=== PATIENT | male | born 1985 | race Caucasian/White ===

== ENCOUNTER 2017-11-01 03:32 | Emergency (ER) | payer OTHER ==
[2017-11-01 04:01] LABS: #Basophils 0.1 thou/uL (0.0-0.2); #Eosinphils 0.2 thou/uL (0.0-0.7); #Lymphocytes 3.3 thou/uL (1.20-3.40); #Monocytes 1.1 thou/uL (0.11-0.59); %Basophils 0.8 % (0.0-1.0); %Eosinophils 1.6 % (0.0-10.0); %Lymphocytes 25.9 % (21.0-51.0); %Monocytes 8.9 % (0.0-10.0); %Neutrophils 62.9 % (42.0-75.0); Hemoglobin 15.9 g/dL (14.0-18.0); Mean Corpuscular HGB CONC 34.5 g/dL (32.0-36.0); Mean Corpuscular Hemoglobin 28.2 pg (27.0-31.0); Mean Corpuscular Volume 81.8 fl (80.0-94.0); Mean Platelet Volume 7.2 fL (7.4-10.4); Platelet Count 252 thou/uL (130-400); RBC Distribution Width 12.5 % (11.5-14.5); Red Blood Cell (RBC) Count 5.63 mill/uL (4.70-6.10); White Blood Cell (WBC) Count 12.7 thou/uL (4.8-10.8)
[2017-11-01 04:24] LABS: ALT (SGPT) 47 U/L (8-55); AST (SGOT) 19 U/L (5-34); Alkaline Phosphatase 85 U/L (40-150); Anion Gap 12 mmol/L (10-20); BUN (Urea Nitrogen) 10 mg/dL (8.9-20.6); Bilirubin, Total 0.5 mg/dL (0.2-1.2); CK (CPK) 77 U/L (30-200); Calc. Creatinine Clearance 0 mL/min (70-130); Calcium 9.3 mg/dL (7.8-10.44); Carbon Dioxide 25 mmol/L (22-29); Chloride 105 mmol/L (98-107); Estimated GFR-MDRD Greater than 90; Globulin 3.1 g/dL (2.4-3.5); Glucose 120 mg/dL (70-105); Potassium 3.4 mmol/L (3.5-5.1); Protein, Total 7.1 g/dL (6.0-8.3); Sodium 139 mmol/L (136-145)
[2017-11-01 04:27] LABS: CKMB 1.1 ng/mL (0-6.6); Troponin I Less than 0.010 ng/mL (< 0.028)
--- NOTE | 2017-11-01 09:53 | RAD ---
2 VIEWS CHEST: Date: 11/01/17 COMPARISON: None. HISTORY: Chest pain. FINDINGS: No pneumothorax or pleural fluid. No focal consolidation or alveolar edema. Heart and mediastinal con tours unremarkable. IMPRESSION: No acute findings. POS: [facility]
--- NOTE | 2017-11-01 11:23 | CT ---
PRELIMINARY REPORT/[facility]/EMERGENTY AFTER-HOURS PROCEDURE EXAM: CT Angiography Chest With Intravenous Contrast CLINICAL HISTORY: 32 years old, male; Pain; Chest pain; Patient HX: Er 8; M 32 presents to ed with 2 weeks of cp nausea and SOB. Was seen at pcp 2 weeks ago and placed on an inhaler for possible asthma. Pt reports pain b etween shoulder blades. Reports palpitations when laying flat. Pmh includes hypothyroidism, ibs asthm a and seasonal allergies TECHNIQUE: Axial computed tomographic angiography images of the chest with intravenous contrast using pulmonary embolism protocol. MIP reconstructed images were created and reviewed. Oblique reformatted images wer e created and reviewed. COMPARISON: No relevant prior studies available. FINDINGS: Pulmonary arteries: No pulmonary embolism. Aorta: Unremarkable. Lungs: No consolidation. Pleural space: No significant effusion. No pneumothorax. Heart: Unremarkable. Bones/joints: No acute fracture. No dislocation. Soft tissues: Unremarkable. Lymph nodes: No enlarged lymph nodes. IMPRESSION: No pulmonary embolism. Thank you for allowing us to participate in the care of your patient. Dictated and Authenticated by: Alvin Lackey MD 11/01/2017 5:50 AM Central Time ([place] & [place]) FINAL REPORT CT ANGIOGRAM CHEST: Date: 11/01/17 COMPARISON: None. HISTORY: Chest pain, nausea, and shortness of breath. FINDINGS: Provided imaging includes 3D reformatted imaging using a CT angiogram protocol. Imaged upper abdomen unremarkable. No lymphadenopathy. No pleural, pericardial, or mediastinal fluid. No evidence for pulm onary embolism. Lung parenchyma and osseous structures demonstrate no acute findings. IMPRESSION: Unremarkable CT angiogram of the chest. POS: [facility]
[2017-11-01] MEDS ORDERED: ISOVUE-370 76%-LOCM 1 ML ONE (14:21)
== END 2017-11-01 06:17 | disposition home or self-care (01) ==
LOC: ERS 03:32
DX: J40 Bronchitis, not specified as acute or chronic (principal); E03.9 Hypothyroidism, unspecified; Z79.899 Other long term (current) drug therapy
CPT/HCPCS: 36415; 71046; 71275; 80053; 82550; 82553; 83880; 84484; 85025; 93005; 94640; J7620

== ENCOUNTER 2017-11-19 15:18 | Observation (INO) | payer OTHER, SELFPAY ==
--- NOTE | 2017-11-19 16:30 | RAD ---
SINGLE VIEW OF THE CHEST: 11/19/17 COMPARISON: None. HISTORY: Mid sternal chest pain that radiates to the mid back. FINDINGS: Single view of the chest shows a normal sized cardiomediastinal silhouette. There is no evidence of c onsolidation, mass, or pleural effusion. The bones are unremarkable. IMPRESSION: No evidence of acute cardiopulmonary disease. POS: [facility]
[2017-11-19 16:42] LABS: #Basophils 0.1 thou/uL (0.0-0.2); #Eosinphils 0.1 thou/uL (0.0-0.7); #Lymphocytes 2.2 thou/uL (1.20-3.40); #Monocytes 1.1 thou/uL (0.11-0.59); #Neutrophils 9.7 thou/uL (1.40-6.50); %Basophils 0.5 % (0.0-1.0); %Eosinophils 1.1 % (0.0-10.0); %Lymphocytes 16.5 % (21.0-51.0); %Monocytes 8.6 % (0.0-10.0); %Neutrophils 73.3 % (42.0-75.0); Hemoglobin 16.2 g/dL (14.0-18.0); Mean Corpuscular HGB CONC 33.9 g/dL (32.0-36.0); Mean Corpuscular Hemoglobin 27.4 pg (27.0-31.0); Mean Platelet Volume 7.1 fL (7.4-10.4); Platelet Count 291 thou/uL (130-400); RBC Distribution Width 12.7 % (11.5-14.5); Red Blood Cell (RBC) Count 5.89 mill/uL (4.70-6.10); White Blood Cell (WBC) Count 13.3 thou/uL (4.8-10.8)
[2017-11-19 17:05] LABS: CKMB 1.1 ng/mL (0-6.6); Troponin I Less than 0.010 ng/mL (< 0.028)
[2017-11-19 17:07] LABS: ALT (SGPT) 53 U/L (8-55); AST (SGOT) 21 U/L (5-34); Albumin 4.2 g/dL (3.5-5.0); Alkaline Phosphatase 86 U/L (40-150); Anion Gap 9 mmol/L (10-20); BUN (Urea Nitrogen) 11 mg/dL (8.9-20.6); Bilirubin, Total 0.4 mg/dL (0.2-1.2); Calc. Creatinine Clearance 0 mL/min (70-130); Calcium 9.2 mg/dL (7.8-10.44); Carbon Dioxide 25 mmol/L (22-29); Chloride 106 mmol/L (98-107); Estimated GFR-MDRD Greater than 90; Globulin 3.2 g/dL (2.4-3.5); Glucose 111 mg/dL (70-105); Potassium 3.5 mmol/L (3.5-5.1); Protein, Total 7.4 g/dL (6.0-8.3); Sodium 136 mmol/L (136-145)
--- NOTE | 2017-11-19 19:01 | PDOC.FPRHP ---
- History of Present Illness Chief Complaint: chest pain, nausea, cough History of Present Illness: 32 yo M w/ pmh of asthma, gerd, IBS, hypothyroid, chronic cough and known h/o bicuspid aortic valve presents for evaluation of acute onset chest pain described as crushing and burning with radiation to the back, constant and non- exertional. He denies exacerbating factors, but reports some relief of pain with the aspirin. Pt reports pain has increased since onset. Initial onset was today around when pt was eating lunch. He had associated diaphoresis, nausea and some SOB. Also reported some neck tightness after arrival to the ED. He denies tenderness to palpation. Reports some pain with deep inspiration and reports the chest pain is non-positional and constant. He has been evaluated for chronic cough and is being treated by his director of community life Dr. Beasley with Breo, phenergan/codeine, tessalon perles with some relief of cough. He was given a shot of dexamethasone shot by his director of community life yesterday. He reports the cough has been present since he had a viral URI, but currently reports his cough is well controlled. Otherwise denies fever, chills, nights sweat, diarrhea, constipation, numbness, tingling, weakness, headache, changes in vision. ED Course: Nitro, ASA - Allergies/Adverse Reactions Allergies Allergy/AdvReac Type Severity Reaction Status Date / Time No Known Drug Allergies Allergy Verified 11/19/17 19:23 - Home Medications Medication Instructions Recorded Confirmed Type Albuterol Sulfate [Proair 90 mcg IH Q4HR PRN 11/19/17 11/19/17 History Respiclick] Benzonatate [Tessalon] 100 mg PO TID PRN 11/19/17 11/19/17 History Colestipol HCl [Colestid] 1 gm PO BID 11/19/17 11/19/17 History Esomeprazole Magnesium [NexIUM] 40 mg PO QAM-WM 11/19/17 11/19/17 History Fluticasone/Vilanterol [Breo 1 puff IH DAILY 11/19/17 11/19/17 History Ellipta 200-25 Mcg INH] Levothyroxine Sodium 1 tab PO QAM 11/19/17 11/19/17 History Promethazine HCl/Codeine 2.5 ml PO Q6HR PRN 11/19/17 11/19/17 History [Promethazine/Codeine Syrup] - History PMHx: Asthma, GERD, hypothyroidism, bicuspid aortic valve, IBS, chronic cough PSHx: Tonsillectomy, cholecystectomy, wisdom teeth extraction FHx:Maternal breast CA, Paternal AVM malformation, Paternal grandfather MA @ 51 , h/o CAD in maternal grandparents @ age >70 Social: Non smoker, social alcohol, denies drugs. Occupation: Dentist - Review of Systems General: denies: fever/chills, weight/appetite/sleep changes, fatigue Eyes: denies: eye pain, vision changes ENT: denies: nasal congestion, rhinorrhea Respiratory: reports: cough, shortness of breath. denies: congestion Cardiovascular: reports: chest pain, edema. denies: palpitation, paroxysmal nocturnal dyspnea, orthopnea Gastrointestinal: reports: nausea. denies: vomiting, diarrhea, constipation, abdominal pain Skin: denies: rashes, jaundice Musculoskeletal: denies: pain, arthritis/arthralgias Neurological: reports: other (lightheadedness). denies: numbness, syncope Psychological: reports: other (increased work stressors). denies: anxiety - Vital signs BP: 130/95 HR: 106 RR: 22 Tmax: 98.7 Pox: 99% on RA Wt: 188Kg - Physical Exam Constitutional: NAD, awake, alert and oriented, other (obese) HEENT: normocephalic and atraumatic, PERRLA, EOMI, conjunctiva clear, no scleral icterus, grossly normal vision, grossly normal hearing, MMM, oropharynx clear, good dention Neck: supple, trachea midline, no LAD, no JVD, no thyromegaly Chest: no-tender to palpation, no lesions Heart: RRR, normal S1/S2, no murmurs/rubs/gallops, pulses present Lungs: CTAB, no respiratory distress, good air movement, no rales/rhonchi, no wheezing, no retractions Abdomen: soft, non-tender, bowel sounds present, no masses/distention Musculoskeletal: normal tone, ROM grossly normal Neurological: no focal deficit Skin: no rash/lesions, good turgor, capillary refill <2 seconds, no jaundice Heme/Lymphatic: no purpura, no petechia, no LAD Psychiatric: normal mood and affect, good judgment and insight FMR H&P: Results - Labs Result Diagrams: 11/21/17 06:43 11/21/17 06:43 Lab results: WBC 13.3 thou/uL (4.8-10.8) H 11/19/17 16:25 Hgb 16.2 g/dL (14.0-18.0) 11/19/17 16:25 Hct 47.7 % (42.0-52.0) 11/19/17 16:25 MCV 81.0 fl (80.0-94.0) 11/19/17 16:25 Plt Count 291 thou/uL (130-400) 11/19/17 16:25 Neutrophils % 73.3 % (42.0-75.0) 11/19/17 16:25 Sodium 136 mmol/L (136-145) 11/19/17 16:25 Potassium 3.5 mmol/L (3.5-5.1) 11/19/17 16:25 Chloride 106 mmol/L (98-107) 11/19/17 16:25 Carbon Dioxide 25 mmol/L (22-29) 11/19/17 16:25 BUN 11 mg/dL (8.9-20.6) 11/19/17 16:25 Creatinine 0.87 mg/dL (0.6-1.3) 11/19/17 16:25 Glucose 111 mg/dL (70-105) H 11/19/17 16:25 Calcium 9.2 mg/dL (7.8-10.44) 11/19/17 16:25 Total Bilirubin 0.4 mg/dL (0.2-1.2) 11/19/17 16:25 AST 21 U/L (5-34) 11/19/17 16:25 ALT 53 U/L (8-55) 11/19/17 16:25 Alkaline Phosphatase 86 U/L (40-150) 11/19/17 16:25 CK-MB (CK-2) 1.1 ng/mL (0-6.6) 11/19/17 16:25 B-Natriuretic Peptide 13.5 pg/mL (0-100) 11/19/17 16:25 Serum Total Protein 7.4 g/dL (6.0-8.3) 11/19/17 16:25 Albumin 4.2 g/dL (3.5-5.0) 11/19/17 16:25 - EKG Interpretation EKG: Sinus rhythm, LVH, ST depression in V2-V4, Tachycardia - Radiology Interpretation Chest x-ray Status: report reviewed by me (No acute intrathoracic process) FMR H&P: A/P - Problem List (1) Chest pain, atypical Status: Acute Code(s): R07.89 - OTHER CHEST PAIN (2) Bicuspid aortic valve Status: Acute Code(s): Q23.1 - CONGENITAL INSUFFICIENCY OF AORTIC VALVE (3) GERD (gastroesophageal reflux disease) Status: Acute Code(s): K21.9 - GASTRO-ESOPHAGEAL REFLUX DISEASE WITHOUT ESOPHAGITIS (4) Hypothyroid Status: Acute Code(s): E03.9 - HYPOTHYROIDISM, UNSPECIFIED (5) IBS (irritable bowel syndrome) Status: Acute (6) Asthma Status: Acute Code(s): J45.909 - UNSPECIFIED ASTHMA, UNCOMPLICATED (7) Chronic cough Status: Acute Code(s): R05 - COUGH (8) Leukocytosis Status: Acute Code(s): D72.829 - ELEVATED WHITE BLOOD CELL COUNT, UNSPECIFIED - Plan 1) Atypical chest pain: Anabella criteria 1/3. Heart Score 4 with moderately suspicious cp, st depression in v2-4 and 1-2 risk factors (obesity). Pt has non- exertional, substernal cp, no relieved by rest. Pt will be admitted to tele obs. Trend troponinsX3, check bmp, mag, phos, tsh, AM FLP. AM stress and echo. Repeat am EKG. Nitro prn for anginal symptoms. NPO @ midnight. 2) h/o bicuspid aortic valve: pt has not had an echo in > 2 years and was supposed to be scheduled for one soon. Given symtpoms and risk factors, will plan for echo tomorrow. Otherwise stable 3)GERD: on omeprazole daily for GERD. Continue home medications. Possibly contributing to chronic cough. Stable. 4) Hypothyroid: Home medications. Check AM TSH 5)IBS: continue home meds; stable 6) Asthma: Continue home medications 7) Chronic cough: continue home medications possibly 2/2 Gerd Vs Asthma, stable. 8) Leukocytosis; Pt recently had steroid injection and white count likely 2/2 to medication. Recheck am cbc. 9) PPx: SCDs and PPI for dvt and GI ppx, respectively 10) Code status: Full code, spoke with pt on admission pt desires to be full code. Disposition/LOS: Stable, </= 2 days FMR H&P: Upper Level - Pertinent history 32 yo CM with PMHx asthma and morbid obesity presented to ED for chest pain. Pt endorses substernal burning and crushing chest pain radiating to his back that started today at 1pm while eating lunch. 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 Endorsed nausea without vomiting. Pain on both sides of neck and tingling in his arms. Pt received ASA in ED which helped relieve the pain although still not completely resolved at the time of this interview. He has had two ED visits in last 2 months for chest pain and cough but symptoms never this severe and all workup has been negative. Pt endorses hx of bad cold 2 months ago that seemed to awaken his dormant asthma. Has caused continual issues since with persistent cough and some SOB. He is being managed by an director of community life currently. - Pertinent findings Gen: obese, NAD, mildly diaphoretic, alert Chest: no tenderness on palpation CV: RRR, no m/r/g Lungs: CTAB, no rales/rhonchi, no wheezing Abd: NT/ND, BS+ Ext: trace BLE edema to mid-shins - Plan Date/Time: 11/19/17 491 1. Atypical chest pain. Has some typical features with convincing hx of pain today. Heart score 4. 3rd overall evaluation for chest pain in last 2 months with no stress test. ST depression V2-V4 on EKG with some repolarization changes. Trend trops. ASA, nitro for pain. EKG in AM and if pain worsens. Stress test in AM unless chest pain remains active then consider cards consult. NPO at [place]. Check TSH, lipids. Observation on telemetry overnight. 2. Asthma. Continue home meds. Lungs clear. 3. GERD. Continue PPI. 4. Persistent cough. Continue current regimen from home. Continue outpt workup through PCP and director of community life. 5. Bicuspid aortic valve. Pharm nuclear stress test should evaluate EF. Pt supposed to have outpt ECHO performed soon. No current indication for in house ECHO. 6. Hypothyroid. Home meds. Check TSH. 7. IBS. Continue cholestyramine. I, Nahid Marina, have evaluated this patient and agree with findings/plan as outlined by r d internship resident. Pertinent changes/additions are listed here. Attending Addendum - Attending Addendum Date/Time: 11/19/17 2200 I personally evaluated the patient and discussed the management with Dr. Hickey and Dr. Marina I agree with the History, Examination, Assessment and Plan documented above with any addition or exceptions noted below. Atypical CP but with concerning feature and risk factors. Will rule out ACS. Stress in AM. ABrayMD
[2017-11-19] MEDS ORDERED: Nitroglycerin 0.4 MG TAB (25 Tab Bottle) ONE (19:06)
[2017-11-19 20:45] LABS: Troponin I Less than 0.010 ng/mL (< 0.028)
[2017-11-19] MEDS ORDERED: Calcium Carbonate 500 MG ChewTAB PO PRN (21:49)
[2017-11-19] MEDS ORDERED: Ondansetron ODT 4 MG TAB PO PRN (21:49)
[2017-11-19] MEDS ORDERED: Ondansetron HCl/PF 4 MG/2 ML Vial IVP PRN (21:49)
[2017-11-19] MEDS ORDERED: Nitroglycerin 0.4 MG TAB (25 Tab Bottle) PO PRN (21:49)
[2017-11-19] MEDS ORDERED: PROVENTIL INHALER 6.7 G (200 INHALATIONS) INH SCH (22:30)
[2017-11-19] MEDS: Acetaminophen 325 MG TAB PO PRN (22:31)
[2017-11-19] MEDS: Sodium Chloride 0.9% 1,000 ML IV SCH (23:03)
[2017-11-19 23:08] VITALS: BMI 48.8
[2017-11-19 23:31] LABS: Troponin I Less than 0.010 ng/mL (< 0.028)
[2017-11-19] MEDS ORDERED: PROVENTIL INHALER 6.7 G (200 INHALATIONS) INH PRN (23:51)
[2017-11-19] MEDS ORDERED: Lidocaine 2% Viscous Solution 10 ML, Aluminum & Magnesium Hydroxide 30 ML SSW SCH (23:59)
[2017-11-20] MEDS: Benzonatate 100 MG CAP PO PRN ×3 (00:15→20:50)
[2017-11-20] MEDS: Sodium Chloride 0.9% 1,000 ML IV SCH (01:33)
[2017-11-20] MEDS: Levothyroxine Sodium 75 MCG TAB PO SCH ×2 (04:03→20:56)
[2017-11-20] MEDS: Acetaminophen 325 MG TAB PO PRN (04:08)
[2017-11-20 04:36] LABS: #Basophils 0.1 thou/uL (0.0-0.2); #Eosinphils 0.1 thou/uL (0.0-0.7); #Lymphocytes 3.2 thou/uL (1.20-3.40); #Monocytes 1.4 thou/uL (0.11-0.59); #Neutrophils 9.7 thou/uL (1.40-6.50); %Basophils 0.6 % (0.0-1.0); %Eosinophils 0.7 % (0.0-10.0); %Lymphocytes 22.2 % (21.0-51.0); %Monocytes 9.4 % (0.0-10.0); %Neutrophils 67.2 % (42.0-75.0); Hemoglobin 15.2 g/dL (14.0-18.0); Mean Corpuscular HGB CONC 34.5 g/dL (32.0-36.0); Mean Corpuscular Hemoglobin 28.3 pg (27.0-31.0); Mean Platelet Volume 7.9 fL (7.4-10.4); Platelet Count 279 thou/uL (130-400); RBC Distribution Width 12.8 % (11.5-14.5); Red Blood Cell (RBC) Count 5.36 mill/uL (4.70-6.10); White Blood Cell (WBC) Count 14.5 thou/uL (4.8-10.8)
[2017-11-20 04:56] LABS: Anion Gap 10 mmol/L (10-20); BUN (Urea Nitrogen) 9 mg/dL (8.9-20.6); Calc. Creatinine Clearance 387 mL/min (70-130); Calcium 8.6 mg/dL (7.8-10.44); Carbon Dioxide 23 mmol/L (22-29); Chloride 107 mmol/L (98-107); Cholesterol 118 mg/dl (< 200 Desired); Estimated GFR-MDRD Greater than 90; Glucose 96 mg/dL (70-105); HDL Cholesterol 39 mg/dL (>60 Neg Risk); LDL Cholesterol, Calculated 64 mg/dL; Potassium 3.8 mmol/L (3.5-5.1); Sodium 136 mmol/L (136-145); Triglycerides 76 mg/dL (Less than 150)
[2017-11-20] MEDS ORDERED: Mometasone/Formoterol 120 PUFF INHALER INH SCH ×2 (06:30)
[2017-11-20] MEDS ORDERED: Regadenoson 0.4 MG/5 ML SYRINGE ONE (06:43)
--- NOTE | 2017-11-20 07:39 | PDOC.FM ---
- Subjective Subjective: Patient states he had a decent night. He has had multiple ED visits and follow up visits as an outpatient for his chronic symptoms. He states his burning in his chest is still present, however, it is improved from yesterday. He no longer has any pain in his chest, but some of the numbness is still present. He denies any fevers, chills, n/v/d. He does admit to a cough that is chronic. No other complaints this morning. - Objective Vital Signs & Weight: Vital Signs (12 hours) Temp Pulse Resp BP Pulse Ox 11/20/17 04:00 97.7 F 70 20 123/72 96 11/20/17 00:33 97.8 F 79 18 11/19/17 23:40 79 18 122/60 96 11/19/17 21:49 96 11/19/17 21:12 97.8 F 90 20 140/81 97 Weight Weight 186.744 kg I&O: 11/19/17 11/20/17 11/21/17 06:59 06:59 06:59 Intake Total 1700 Balance 1700 Result Diagrams: 11/20/17 04:01 11/20/17 04:01 <Edilberto Jamil - Last Filed: 11/20/17 07:32> - Objective Vital Signs & Weight: Vital Signs (12 hours) Temp Pulse Resp BP BP Pulse Ox 11/20/17 08:05 97.7 F 70 20 11/20/17 07:35 98.2 F 75 12 120/61 96 11/20/17 04:00 97.7 F 70 20 123/72 96 11/20/17 00:33 97.8 F 79 18 11/19/17 23:40 79 18 122/60 96 11/19/17 21:49 96 Weight Weight 186.744 kg I&O: 11/19/17 11/20/17 11/21/17 06:59 06:59 06:59 Intake Total 1700 Balance 1700 Result Diagrams: 11/20/17 04:01 11/20/17 04:01 <Bro Paris - Last Filed: 11/20/17 09:45> Phys Exam - Physical Examination Constitutional: NAD HEENT: moist MMs Neck: no nodes Respiratory: no wheezing, clear to auscultation bilateral Cardiovascular: RRR, no significant murmur Gastrointestinal: soft, non-tender, no distention, positive bowel sounds Musculoskeletal: no edema, pulses present Neurological: non-focal, normal sensation, moves all 4 limbs Lymphatic: no nodes Psychiatric: normal affect, A&O x 3 <Edilberto Jamli - Last Filed: 11/20/17 07:32> Dx/Plan (1) Chest pain, atypical Code(s): R07.89 - OTHER CHEST PAIN Status: Acute (2) Asthma Code(s): J45.909 - UNSPECIFIED ASTHMA, UNCOMPLICATED Status: Acute (3) Bicuspid aortic valve Code(s): Q23.1 - CONGENITAL INSUFFICIENCY OF AORTIC VALVE Status: Acute (4) Chronic cough Code(s): R05 - COUGH Status: Acute (5) GERD (gastroesophageal reflux disease) Code(s): K21.9 - GASTRO-ESOPHAGEAL REFLUX DISEASE WITHOUT ESOPHAGITIS Status: Acute (6) Hypothyroid Code(s): E03.9 - HYPOTHYROIDISM, UNSPECIFIED Status: Acute (7) IBS (irritable bowel syndrome) Status: Acute (8) Leukocytosis Code(s): D72.829 - ELEVATED WHITE BLOOD CELL COUNT, UNSPECIFIED Status: Acute - Plan Plan: (1) Chest pain, atypical - Troponins negative x3 - Stress and echo pending (2) Bicuspid aortic valve - Not currently symptomatic - Will plan for echo this AM (3) GERD (gastroesophageal reflux disease) - Continue home regimen - Likely needs EGD evaluation as outpatient (4) Hypothyroid - TSH 2.98 in therapeutic range - Continue home regimen (5) IBS (irritable bowel syndrome) - Continue home meds (6) Asthma - Continue home medications - Not in acute flair (7) Chronic cough - GERD vs Asthma - Recommend outpatient follow up (8) Leukocytosis - Elevated this AM again - Likely steroid induced Disposition: Stable, will await stress results. <Edilberto Jamil - Last Filed: 11/20/17 07:32> Attending Addendum - Attending Addendum Date/Time: 11/20/17 4650 I personally evaluated the patient and discussed the management with Dr. Jamil. I agree with the History, Examination, Assessment and Plan documented above with any addition or exceptions noted below. Patient feeling well this morning. He is currently receiving nuclear stress testing. His chest pain is more consistent with GERD type symptoms, for which he is being followed in outpatient setting. Cardiac enzymes negative but EKG suggestive of some ischemia on initial EKG. He will have stress testing today and will obtain echo due to his history of bicuspid valve and evidence of LVH on EKG. Discharge once those items result, unless he needs 2 day stress. <Bro Paris - Last Filed: 11/20/17 09:45>
[2017-11-20] MEDS ORDERED: Guaifenesin DM 100-10/5 ML UDCUP PO PRN (15:22)
[2017-11-20] MEDS ORDERED: PROVENTIL INHALER 6.7 G (200 INHALATIONS) INH PRN (18:30)
--- NOTE | 2017-11-21 06:30 | PDOC.FM ---
- Subjective Subjective: Patient believes his symptoms were likely due to asthma vs GERD. He is willing to have outpatient follow up for these. He is ready for the 2nd part of his stress test today and then ready to go home. No chest pain, sob, n/v/d, fevers, chills, but he does complain of chronic cough. No other complaints. - Objective Vital Signs & Weight: Vital Signs (12 hours) Temp Pulse Resp BP Pulse Ox 11/21/17 06:00 69 20 113/71 100 11/20/17 20:00 98.2 F 81 12 Weight Weight 186.744 kg I&O: 11/19/17 11/20/17 11/21/17 06:59 06:59 06:59 Intake Total 1700 1155 Balance 1700 1155 Result Diagrams: 11/21/17 06:43 11/21/17 06:43 <Edilberto Jamil - Last Filed: 11/21/17 07:43> - Objective Vital Signs & Weight: Vital Signs (12 hours) Temp Pulse Resp BP BP Pulse Ox 11/21/17 07:37 98.1 F 62 12 121/62 98 11/21/17 06:00 69 20 113/71 100 Weight Weight 186.744 kg I&O: 11/20/17 11/21/17 11/22/17 06:59 06:59 06:59 Intake Total 1700 1155 Balance 1700 1155 Result Diagrams: 11/21/17 06:43 11/21/17 06:43 <Bro Paris - Last Filed: 11/21/17 10:32> Phys Exam - Physical Examination Constitutional: NAD HEENT: moist MMs Neck: no nodes Respiratory: no wheezing, clear to auscultation bilateral Cardiovascular: RRR, no significant murmur Gastrointestinal: soft, non-tender, no distention, positive bowel sounds Musculoskeletal: no edema, pulses present Neurological: non-focal, normal sensation, moves all 4 limbs Lymphatic: no nodes Psychiatric: normal affect, A&O x 3 Skin: no rash <Edilberto Jamil - Last Filed: 11/21/17 07:43> Dx/Plan (1) Chest pain, atypical Code(s): R07.89 - OTHER CHEST PAIN Status: Acute (2) Asthma Code(s): J45.909 - UNSPECIFIED ASTHMA, UNCOMPLICATED Status: Acute (3) Bicuspid aortic valve Code(s): Q23.1 - CONGENITAL INSUFFICIENCY OF AORTIC VALVE Status: Acute (4) Chronic cough Code(s): R05 - COUGH Status: Acute (5) GERD (gastroesophageal reflux disease) Code(s): K21.9 - GASTRO-ESOPHAGEAL REFLUX DISEASE WITHOUT ESOPHAGITIS Status: Acute (6) Hypothyroid Code(s): E03.9 - HYPOTHYROIDISM, UNSPECIFIED Status: Acute (7) IBS (irritable bowel syndrome) Status: Acute (8) Leukocytosis Code(s): D72.829 - ELEVATED WHITE BLOOD CELL COUNT, UNSPECIFIED Status: Acute - Plan Plan: (1) Chest pain, atypical - Troponins negative x3 - 2nd day stress today. (2) Bicuspid aortic valve - Not currently symptomatic - ECHO reveals EF 55-60% and bicuspid aortic valve (3) GERD (gastroesophageal reflux disease) - Continue home regimen - Likely needs EGD evaluation as outpatient (4) Hypothyroid - TSH 2.98 in therapeutic range - Continue home regimen (5) IBS (irritable bowel syndrome) - Continue home meds (6) Asthma - Continue home medications - Not in acute flair (7) Chronic cough - GERD vs Asthma - Robitussin - Heidisalon zamzam - Recommend outpatient follow up (8) Leukocytosis - Elevated this AM again - Likely steroid induced Disposition: Stable, will await stress results and will be discharged today. <Edilberto Jamil - Last Filed: 11/21/17 07:43> Attending Addendum - Attending Addendum Date/Time: 11/21/17 1031 I personally evaluated the patient and discussed the management with Dr. Jamil. I agree with the History, Examination, Assessment and Plan documented above with any addition or exceptions noted below. Patient reports no concerning chest pains since observation. Has part 2 of stress testing today. Once resulted, can be discharged as long as normal for further outpatient mgmt. Per report, stress images yesterday were normal. Await final read. <Bro Paris - Last Filed: 11/21/17 10:32>
[2017-11-21 07:05] LABS: #Basophils 0.1 thou/uL (0.0-0.2); #Eosinphils 0.2 thou/uL (0.0-0.7); #Lymphocytes 3.4 thou/uL (1.20-3.40); #Monocytes 1.2 thou/uL (0.11-0.59); #Neutrophils 9.2 thou/uL (1.40-6.50); %Basophils 0.6 % (0.0-1.0); %Eosinophils 1.5 % (0.0-10.0); %Lymphocytes 24.3 % (21.0-51.0); %Monocytes 8.7 % (0.0-10.0); %Neutrophils 64.9 % (42.0-75.0); Mean Corpuscular HGB CONC 33.5 g/dL (32.0-36.0); Mean Corpuscular Hemoglobin 27.5 pg (27.0-31.0); Mean Corpuscular Volume 81.9 fl (80.0-94.0); Mean Platelet Volume 7.2 fL (7.4-10.4); Platelet Count 292 thou/uL (130-400); RBC Distribution Width 12.7 % (11.5-14.5); Red Blood Cell (RBC) Count 5.84 mill/uL (4.70-6.10); White Blood Cell (WBC) Count 14.2 thou/uL (4.8-10.8)
[2017-11-21 07:25] LABS: Anion Gap 9 mmol/L (10-20); BUN (Urea Nitrogen) 9 mg/dL (8.9-20.6); Calc. Creatinine Clearance 357 mL/min (70-130); Calcium 9.2 mg/dL (7.8-10.44); Carbon Dioxide 26 mmol/L (22-29); Chloride 104 mmol/L (98-107); Estimated GFR-MDRD Greater than 90; Glucose 92 mg/dL (70-105); Potassium 3.7 mmol/L (3.5-5.1); Sodium 135 mmol/L (136-145)
[2017-11-21] MEDS: Acetaminophen 325 MG TAB PO PRN (09:09)
[2017-11-21 12:13] VITALS: BP 131/77; TEMP 98.3
--- NOTE | 2017-11-21 15:47 | NM ---
MYOCARDIAL PERFUSION STUDY: DATE: 11/21/17. HISTORY: Chest pain. History of bicuspid aortic valve. RADIOPHARMACEUTICALS: 32 mCi Technetium 99m sestamibi, IV at stress, and 10 mCi Technetium 99m sestamibi, IV at rest. MEDICATIONS: 0.4 mg of LexiScan, IV. FINDINGS: There is a small area of mildly diminished uptake of radiotracer seen within the ventricular apex on both the resting and stress acquisitions. No reversible defect is present. Gated images show normal ventricular wall motion and wall thickening. The calculated left ventricular ejection fraction is 5 1%. Quantitative analysis shows no significant reversible defect. IMPRESSION: 1. Probably normal myocardial perfusion study without evidence of a reversible defect seen to sugges t ischemia. There is a small relatively fixed defect in the ventricular apex, but there is normal ve ntricular wall motion and wall thickening, and this may be related to apical thinning. 2. Low normal left ventricular ejection fraction of 51%. 3. Dilated left ventricle with end-diastolic volume of 197 mL. POS: [facility]
--- NOTE | 2017-11-23 03:46 | DIS-2 ---
DATE OF ADMISSION: 11/19/2017 DATE OF DISCHARGE: 11/21/2017 RESIDENT: Edilberto Jamil M.D. ADMITTING ATTENDING: Dai Diaz M.D. DISCHARGE ATTENDING: Bro Paris M.D. CONSULTATIONS: None. PROCEDURES: The patient underwent a chest x-ray on 11/19/2017 showed no evidence of acute cardiopulm onary process. The patient underwent a transthoracic echocardiogram on 11/20/2017 showed a technically difficult kwan dy with suboptimal images due to body habitus. Left ventricular size normal. Ejection fraction is v isually estimated at 55%-60%. Left atrium is normal size. Trace mitral regurgitation is present. T rivial aortic regurgitation is noted. No aortic stenosis. Unable to tell the aortic valve is bicusp id or tricuspid due to limited images. Tricuspid valve is structurally normal. No evidence of any p ericardial effusion. The patient also underwent a nuclear medicine stress test over 2 days on 11/20/2017 and 11/21/2017 th at showed a probable normal myocardial perfusion study without evidence of reversible defect seen to suggest ischemia. There is a small relatively fixed defect in the ventricular apex, but there is nor mal ventricular wall motion and wall thickening, this may be related to apical thinning. Low normal left ventricle ejection fraction of 51%, dilated left ventricle with end diastolic volume of 197 mL. PRIMARY DIAGNOSES: 1. Atypical chest pain. 2. Asthma. 3. Bicuspid aortic valve. 4. Chronic cough. 5. Gastroesophageal reflux disease. 6. Hypothyroidism. 7. Irritable bowel syndrome. DISCHARGE MEDICATIONS: 1. Promethazine/codeine syrup 2.5 mL p.o. q.6 hours p.r.n. 2. Tessalon 100 mg p.o. t.i.d. p.r.n. 3. Colestid 1 gram p.o. b.i.d. 4. Levothyroxine 75 mcg p.o. q.a.m. 5. Breo Ellipta 1 puff inhaled daily. 6. ProAir 90 mcg inhaled q.4 hours p.r.n. 7. Nexium 40 mg p.o. q.a.m. with meals. DISCONTINUED MEDICATIONS: None. HISTORY OF PRESENT ILLNESS AND HOSPITAL COURSE: This is a 32-year-old male with past medical history of asthma, GERD, IBS, hypothyroidism, and chronic cough with known history of bicuspid aortic valve disease that presents for evaluation of acute onset chest pain, described as crushing, burning with r adiation to the back. The pain is constant and nonexertional. He denies exacerbating factors, but r eports some relief of pain with the aspirin. The patient does report pain that has increased since o nset. Initial onset was today, when the patient was not eating much. He had associated diaphoresis, nausea, and shortness of breath. Also, reported some neck tightness after arrival to the ED. He de nies chest tenderness to palpation, reports some pain with deep inspiration, reports chest pain is no t positional and constant. He has been evaluated for chronic cough and being treated by his allergis tDr. Pcae with Breo, Phenergan, codeine, Tessalon Perles and some relief of cough. He was given a shot of dexamethasone by his knitted cloth examiner yesterday as well. He reports cough at present since he has h ad a viral URI, but currently reports his cough is well controlled. Otherwise, the patient denies fe vers, chills, night sweats, diarrhea, constipation, numbness, tingling, weakness, headache or changes in vision. In the ER, he was given nitro and aspirin. During this hospitalization, the patient had notable lab values of white blood cell count that ranged from 13.3-14.5 likely due to his steroid injections the previous day. The patient also had a D-dime r was less than 0.27 for a negative result. Otherwise, had no other notable lab values including neg ative troponins x3, normal TSH, and a normal lipid profile. The patient did undergo an echocardiogra m as he gets biannual echocardiograms to track his bicuspid aortic valve disease and is tracked by [facility] PCP. The patient also had a stress test because of his body habitus of a BMI of 48. He needed to be a candidate for a two-day stress. Findings of the exam are listed above in the procedure section. The patient otherwise had some resolution of his chest pain with a GI cocktail and we believe that working with a diagnosis is that it was noncardiac in nature of the chest pain but it was evident reynold t is either GERD or his asthma flaring up causing his pain. The patient otherwise had no further com plications. It was explained to the patient that he needs to follow up with his PCP for further eval uation of his GERD as well as his asthma. No other complications during his hospitalization. He had blood pressure within normal limits and all other vital signs were within normal limits. At that ti me it was determined that the patient would be discharged in appropriate condition. DISPOSITION: Stable. DISCHARGE INSTRUCTIONS: 1. Location: Will be discharged home into the care of himself. 2. Diet: Will be a bariatric diet to ensure that he loses some weight here in the future. 3. Activity: Will be as tolerated with no restrictions. 4. Followup: Follow up will be with his PCP, Dr. Adames in [place] in 1 week to ensure further tr eatment and evaluation of his GERD, and asthma.
--- NOTE | 2017-11-28 17:02 | EKG ---
Test Reason : Blood Pressure : / mmHG Vent. Rate : 097 BPM Atrial Rate : 097 BPM P-R Int : 170 ms QRS Dur : 088 ms QT Int : 342 ms P-R-T Axes : 040 -07 025 degrees QTc Int : 434 ms Normal sinus rhythm Minimal voltage criteria for LVH, may be normal variant Nonspecific ST abnormality Abnormal ECG Confirmed by JOSE PATEL, EARLE ([id number]), desk editor BRI TRAN ([id number] on 11/28/2017 5:02:31 PM Referred By: Confirmed By:EARLE GARCIA MD
--- NOTE | 2017-11-28 17:02 | EKG ---
Test Reason : Blood Pressure : / mmHG Vent. Rate : 103 BPM Atrial Rate : 103 BPM P-R Int : 170 ms QRS Dur : 088 ms QT Int : 346 ms P-R-T Axes : 046 -16 053 degrees QTc Int : 453 ms Sinus tachycardia Moderate voltage criteria for LVH, may be normal variant Nonspecific ST abnormality Abnormal ECG #1 Confirmed by JOSE PATEL, EARLE ([id number]), editor in chief BRI TRAN ([id number]) on 11/28/2017 5:01:40 PM Referred By: Confirmed By:EARLE GARCIA MD
== END 2017-11-21 16:18 | disposition home or self-care (01) ==
LOC: ERS 15:18 → 2SW 18:04
PROVIDERS: ADMIT Student in an Organized Health Care Education/Training Program; ATTEND Student in an Organized Health Care Education/Training Program
DX: R07.89 Other chest pain (principal); Q23.1 Congenital insufficiency of aortic valve; E03.9 Hypothyroidism, unspecified; R05 Cough; J45.909 Unspecified asthma, uncomplicated; K21.9 Gastro-esophageal reflux disease without esophagitis; K58.9 Irritable bowel syndrome, unspecified; D72.829 Elevated white blood cell count, unspecified; Z79.51 Long term (current) use of inhaled steroids; Z79.899 Other long term (current) drug therapy
CPT/HCPCS: 36415; 71045; 78452; 80048; 80053; 80061; 82553; 83735; 83880; 84100; 84443; 84484; 85025; 85379; 93005; 93010; 93017; 93306; 94760; 96360; 96361; A4216; A9500; G0378; J2785; Q0162

== ENCOUNTER 2018-02-05 07:55 | Outpatient (CLI) | payer OTHER ==
--- NOTE | 2018-02-05 11:13 | RAD ---
BARIUM SWALLOW ESOPHOGRAM DOUBLE CONTRAST: Date: 02-05-18 History: 32-year-old male with dysphagia, nausea, and vomiting. Technique: Upright administration of effervescent granules and thick liquid barium. Prone MARSHALL straw administrati on of thick liquid barium. Upright administration of barium tablet with water. FINDINGS: The esophagus has normal motility, distensibility, and where visible, mucosal pattern. There is no ev idence of hiatal hernia. The barium tablet passes rapidly into the stomach from the esophagus. No gas troesophageal reflux is visualized. However, the patient vomited immediately after drinking the thin liquid barium. IMPRESSION: 1. Nausea and vomiting. 2. Otherwise normal. POS: [facility]
== END 2018-02-05 07:56 | disposition home or self-care (01) ==
LOC: RAD 07:55
PROVIDERS: ATTEND Internal Medicine
DX: R10.13 Epigastric pain (principal); R11.2 Nausea with vomiting, unspecified
CPT/HCPCS: 74220

== ENCOUNTER 2018-02-12 06:43 | Day surgery (SDC) | payer OTHER ==
[2018-02-11 09:07] VITALS: BMI 47.4
[2018-02-12] MEDS ORDERED: Fentanyl 100 MCG/2 ML VIAL ONE (07:53)
[2018-02-12] MEDS ORDERED: Midazolam HCl 2 mg/2 ml Vial ONE (08:04)
--- NOTE | 2018-02-12 09:42 | OP ---
DATE OF PROCEDURE: 02/12/2018 SURGEON: Dr. Enoc Tee INDICATION FOR PROCEDURE: Midepigastric abdominal pain, dysphagia, hematemesis. PROCEDURE: Esophagogastroduodenoscopy with biopsy. DESCRIPTION OF PROCEDURE: After the risks and benefits of the procedure were explained to the patien t including risks of bleeding, infection, perforation, reactions to anesthesia and/or pain, informed consent was obtained. The patient was then taken to the endoscopy suite where deep sedation was admi nistered via propofol and anesthesia support. Once adequate sedation was achieved, the standard mode roscope was introduced into the mouth with intubation of the esophagus, stomach and proximal small in testine with the findings listed below. The patient tolerated the procedure well with no immediate p erioperative complications. FINDINGS: Esophagus: Normal appearing mucosa was seen in the proximal, mid and distal esophagus. There was no evidence of erosions, ulcerations, mass lesions or active/recent bleeding. Both the diaphragmatic pi nch and GE junction were well seen at approximately 45 cm past the incisors. Random biopsies were th en taken from the proximal and distal esophagus and placed in separate bottles for evaluation of eosi nophilic esophagitis. Stomach: Diffuse moderate mucosal erythema was seen throughout the entire stomach, including the gas tric cardia, fundus, body, antrum, greater curvature and incisura. There was mild linear increase in his mucosal erythema in the gastric antrum, but there was no associated erosions, ulcerations, or ma ss lesions. Random biopsies were taken from the antrum, incisura and body for evaluation of possible H. pylori. Duodenum: Normal appearing mucosa was seen in both the duodenal bulb and second portion of the duode num. There was no evidence of erosions, ulcerations, mass lesions or active/recent bleeding. IMPRESSION: 1. Moderately diffuse mucosal erythema was seen throughout the entire stomach concerning for either infection versus bile acid reflux versus medication induced (NSAIDs). 2. No evidence of esophageal stricture or stenosis was seen during this examination that would expla in the patient's dysphagia. RECOMMENDATIONS: 1. Would continue current regimen of PPI 40 mg twice daily as well as an H2 adrianne before bedtime f or maximum acid suppression given symptomatic relief. 2. We would continue conservative acid reflux precautions. 3. Would avoid all NSAIDs. 4. We will follow up on biopsy results for evaluation of the stomach and esophagus respectively. 5. Have the patient follow up in the GI clinic in 2 weeks for reevaluation of his current symptoms a s well as review of the biopsy results at that time.
[2018-02-12] MEDS ORDERED: PROPOFOL 200 MG/20 ML VIAL ONE (14:20)
[2018-02-12] MEDS ORDERED: Lidocaine 1% PF 5 ML VIAL ONE (14:20)
== END 2018-02-12 10:06 | disposition home or self-care (01) ==
LOC: SDC 06:43
PROVIDERS: ATTEND Internal Medicine
PROC: 0DB98ZX Excision of Duodenum, Via Natural or Artificial Opening Endoscopic, Diagnostic (ICD-10-PCS; principal; 2018-02-12)
PROC: 0DB58ZX Excision of Esophagus, Via Natural or Artificial Opening Endoscopic, Diagnostic (ICD-10-PCS; principal; 2018-02-12)
DX: K31.9 Disease of stomach and duodenum, unspecified (principal); J45.909 Unspecified asthma, uncomplicated; G47.30 Sleep apnea, unspecified; E07.9 Disorder of thyroid, unspecified; Z79.899 Other long term (current) drug therapy
CPT/HCPCS: 88305; 88312; 88313; J2001; J2250; J2704; J3010